=== PATIENT | male | born 1965 | race Caucasian/White ===

== ENCOUNTER 2021-12-11 16:33 | Emergency (ER) | payer OTHER ==
[~2021-12-11] VITALS: Ht 172.7 cm; Wt 91.0 kg
[2021-12-11 19:25] VITALS: BP 145/87
== END 2021-12-11 19:29 | disposition home or self-care (01) ==
LOC: ER 16:33
DX: R00.2 Palpitations (principal); I10 Essential (primary) hypertension
CPT/HCPCS: 93005; 99283